=== PATIENT | male | born 1970 ===

== ENCOUNTER 2017-05-25 23:36 | Emergency (ER) | payer MEDICAID ==
[2017-05-25 23:36] VITALS: BMI 28.3
[2017-05-26 00:11] VITALS: RESP 18
[2017-05-26 00:12] VITALS: O2SAT 98
--- NOTE | 2017-05-26 00:50 | ED PDOC ---
HPI: Back Time Seen by Provider: 05/25/17 23:58 Chief Complaint (Nursing): Back Pain Chief Complaint (Provider): Back Pain History Per: Patient History/Exam Limitations: no limitations Onset/Duration Of Symptoms: Hrs Current Symptoms Are (Timing): Still Present Severity: Mild Exacerbating Factor(s): Movement Additional Complaint(s): 46 y/o male patient presenting to the ED with lower back pain. Patient states he was lifting heavy objects today and states he started having lower back pain that worsened with movement. Patient reports the pain is lower on both sides and denies any distal numbness or weakness and the pain is not radiating. He also reports that the pain worsens when he lifted his legs up while laying down. Past Medical History Reviewed: Historical Data, Nursing Documentation, Vital Signs Vital Signs: Last Vital Signs Temp 97.8 F 05/25/17 23:43 Pulse 62 05/25/17 23:43 Resp 18 05/26/17 00:07 BP 117/68 05/25/17 23:43 Pulse Ox 98 05/26/17 00:12 - Medical History PMH: Gastritis, Hypercholesterolemia Denies: Chronic Kidney Disease - Surgical History Surgical History: Appendectomy - Family History Family History: States: Unknown Family Hx - Home Medications Home Medications: Ambulatory Orders Medication Instructions Recorded Simvastatin 10 mg PO DAILY 01/18/15 Omeprazole 2 tab PO DAILY 05/24/16 Cyclobenzaprine [Cyclobenzaprine 10 mg PO BID #15 tab 05/26/17 HCl] Ibuprofen [Motrin Tab] 600 mg PO Q6 #30 tab 05/26/17 Lidocaine 1 each TP DAILY #10 adh..patch 05/26/17 - Allergies Allergies/Adverse Reactions: Allergies Allergy/AdvReac Type Severity Reaction Status Date / Time No Known Allergies Allergy Verified 01/18/15 12:16 Review of Systems ROS Statement: Except As Marked, All Systems Reviewed And Found Negative Constitutional: Negative for: Weakness Cardiovascular: Negative for: Chest Pain Respiratory: Negative for: Shortness of Breath Musculoskeletal: Positive for: Back Pain ((-)Distal Numbness, (+)Lower back pain ) Physical Exam - Reviewed Nursing Documentation Reviewed: Yes Vital Signs Reviewed: Yes - Physical Exam Appears: Positive for: Non-toxic, No Acute Distress Head Exam: Positive for: ATRAUMATIC, NORMAL INSPECTION, NORMOCEPHALIC Skin: Positive for: Normal Color, Warm, Dry Cardiovascular/Chest: Positive for: Regular Rate, Rhythm. Negative for: Murmur Respiratory: Positive for: Normal Breath Sounds. Negative for: Wheezing, Respiratory Distress Extremity: Positive for: Tenderness ((+)Lumbar paravertebral muscular tenderness.), Other ((+)Straight leg raise both sides. ) Neurologic/Psych: Positive for: Alert, Oriented. Negative for: Motor/Sensory Deficits - ECG O2 Sat by Pulse Oximetry: 98 (RA) Pulse Ox Interpretation: Normal Medical Decision Making Medical Decision Making: Time: 11 Initial impression: Muscular Strain Initial plan: --UDIP --LUMBAR SPINE COMPLETE XRAY FOR LOWER BACK PAIN --CYCLOBENZAPRINE 10MG PO --KETOROLAC 30MG IM 130 udip neg, patient feeling better, return precautions given. will d/c home. Scribe Attestation: Documented by Ana Maria Flores, acting as a scribe for Lei Lockhart MD. Scribe Attestation: All medical record entries made by the Scribe were at my direction and personally dictated by me. I have reviewed the chart and agree that the record accurately reflects my personal performance of the history, physical exam, medical decision making, and the department course for this patient. I have also personally directed, reviewed, and agree with the discharge instructions and disposition. Disposition - Clinical Impression Clinical Impression: Back strain - Disposition Referrals: Ana Maria Hall MD [Staff Provider] - Disposition Time: 01:30 Condition: STABLE Prescriptions: Cyclobenzaprine [Cyclobenzaprine HCl] 10 mg PO BID #15 tab Ibuprofen [Motrin Tab] 600 mg PO Q6 #30 tab Lidocaine 1 each TP DAILY #10 adh..patch Instructions: Acute Low Back Pain (ED), Muscle Spasm (ED) Forms: [employer] (Hungarian)
[2017-05-26 01:39] VITALS: BP 139/74; PULSE 78; TEMP 98.1
--- NOTE | 2017-05-26 12:21 | RAD ---
PROCEDURE: Radiographs of the Lumbar Spine. HISTORY: lower back pain COMPARISON: No prior. FINDINGS: BONES: Normal alignment. No listhesis. No fracture. DISC SPACES: Unremarkable. OTHER FINDINGS: None. IMPRESSION: Unremarkable radiographs of the lumbar spine.
== END 2017-05-26 01:44 | disposition home or self-care (01) ==
LOC: H.ER 23:36
DX: S39.012A Strain of muscle, fascia and tendon of lower back, initial encounter (principal); X50.0XXA Overexertion from strenuous movement or load, initial encounter; E78.00 Pure hypercholesterolemia, unspecified

== ENCOUNTER 2017-06-06 12:16 | Observation (INO) | payer MEDICAID ==
[2017-06-06 12:16] VITALS: BMI 28.3
[2017-06-06 12:45] VITALS: PULSE 87; RESP 16; TEMP 98.7
--- NOTE | 2017-06-06 13:22 | ED PDOC ---
HPI: Back Time Seen by Provider: 06/06/17 12:50 Chief Complaint (Nursing): Back Pain Chief Complaint (Provider): Lower Back Pain History Per: Patient History/Exam Limitations: no limitations Onset/Duration Of Symptoms: Days (x2 weeks) Current Symptoms Are (Timing): Still Present Additional Complaint(s): Mian Vu is a 46 year old male with a history of gastritis that presents to the ED with a chief complaint of lower back pain that he has been experiencing for the past two weeks. Patient states that he was in the ED 2 weeks ago for the same problem and had x-ray done which was read as negtive. He has been taking motrin and flexeril which has not helped the pain. He saw PMD yesterday and was given rx for MRI of L/S Spine. PMD told patient to come to ED for the MRI so patient presents today. He rates current pain as 8/10. He denies radiation of pain and he denies any acute bowel or bladder dysfunction. PMD: Dr. Hall Past Medical History Reviewed: Historical Data, Nursing Documentation, Vital Signs Vital Signs: Last Vital Signs Temp 98.7 F 06/06/17 12:42 Pulse 87 06/06/17 12:42 Resp 16 06/06/17 12:42 BP Pulse Ox 126 H 06/06/17 12:42 - Medical History PMH: Gastritis, Hypercholesterolemia - Surgical History Surgical History: Appendectomy Other surgeries: hemmorhoid surgery, rhinoplasty - Family History Family History: States: No Known Family Hx - Living Arrangements Living Arrangements: With Family - Social History Current smoker - smoking cessation education provided: No Alcohol: Social Drugs: Denies - Home Medications Home Medications: Ambulatory Orders Medication Instructions Recorded Simvastatin 10 mg PO DAILY 01/18/15 Omeprazole 2 tab PO DAILY 05/24/16 Cyclobenzaprine [Cyclobenzaprine 10 mg PO BID #15 tab 05/26/17 HCl] Ibuprofen [Motrin Tab] 600 mg PO Q6 #30 tab 05/26/17 Lidocaine 1 each TP DAILY #10 adh..patch 05/26/17 Methylprednisolone [Medrol Dose 4 mg PO ASDIR #21 mg 06/06/17 Pack (21 tabs)] - Allergies Allergies/Adverse Reactions: Allergies Allergy/AdvReac Type Severity Reaction Status Date / Time No Known Allergies Allergy Verified 01/18/15 12:16 Review of Systems ROS Statement: Except As Marked, All Systems Reviewed And Found Negative Constitutional: Negative for: Fever Gastrointestinal: Negative for: Vomiting Genitourinary Male: Negative for: Dysuria, Frequency, Incontinence, Hematuria Musculoskeletal: Positive for: Back Pain (lower back ) Neurological: Negative for: Headache, Dizziness Physical Exam - Reviewed Nursing Documentation Reviewed: Yes Vital Signs Reviewed: Yes - Physical Exam Appears: Positive for: Well, Non-toxic, Uncomfortable (complains of low back pain) Head Exam: Positive for: ATRAUMATIC, NORMOCEPHALIC Skin: Positive for: Normal Color, Warm Eye Exam: Positive for: Normal appearance Neck: Positive for: Painless ROM. Negative for: Pain On Movement Of Neck Cardiovascular/Chest: Positive for: Regular Rate, Rhythm Respiratory: Positive for: Normal Breath Sounds. Negative for: Wheezing, Respiratory Distress Back: Positive for: Vertebral Tenderness (diffuse to lower lumbar region, negative bilateral straight leg raise), Muscle Spasm (lumbar region). Negative for: L CVA Tenderness, R CVA Tenderness Extremity: Positive for: Normal ROM. Negative for: Pedal Edema, Calf Tenderness , Swelling Neurologic/Psych: Positive for: Alert, Oriented, Gait (steady). Negative for: Motor/Sensory Deficits - Laboratory Results Result Diagrams: 06/06/17 14:40 06/06/17 13:55 - ECG O2 Sat by Pulse Oximetry: 100 Pulse Ox Interpretation: Normal - Other Rad MRI L/S Spine X-Ray: Read By Radiologist X-Ray Interpretation: see below Medical Decision Making Medical Decision Making: Impression: Lower Back Pain Plan: * MRI L/S Spine as per verbal order from PMD Dr. Hall * CBC * CMP * IV 30 mg toradol * PO flexeril and tylenol * Admit to ED observation Scribe Attestation: Documented by Kasia Holland, acting as a scribe for Miriam Fitzpatrick PA-C. Provider Scribe Attestation: All medical record entries made by the Scribe were at my direction and personally dictated by me. I have reviewed the chart and agree that the record accurately reflects my personal performance of the history, physical exam, medical decision making, and the department course for this patient. I have also personally directed, reviewed, and agree with the discharge instructions and disposition. ED OBSERVATION Date of observation admission: 06/06/17 Time of observation admission: 14:12 - Observation admission statement Patient is being placed in observation because:: Intractable back pain - Goals of Observation Goals of observation are:: Monitor patient pending work up for intractable back pain, MRI and labs pending. - Progress Note Progress Note: 06/06/17 14:13 MRI LS spine ordered as per request of PMD, Dr. Hall. MRI aware of case and will take patient at 2:45 pm. 06/06/17 16:01 MRI: FINDINGS: ormal lumbar lordosis. Vertebral body heights are preserved. Marrow signal unremarkable. Conus medullaris unremarkable at the level of L1. Paraspinal soft tissues are unremarkable. T12-L1: No disc herniation, spinal canal stenosis or neural foraminal narrowing. L1-2: Left paracentral disc herniation with thecal sac indentation. L2-3: No disc herniation, spinal canal stenosis or neural foraminal narrowing. L3-4: No disc herniation, spinal canal stenosis or neural foraminal narrowing. L4-5: Right foraminal disc herniation with right foraminal stenosis. L5-S1: No disc herniation, spinal canal stenosis or neural foraminal narrowing. OTHER FINDINGS: None. IMPRESSION: L1-2: Left paracentral disc herniation with thecal sac indentation. L4-5: Right foraminal disc herniation with right foraminal stenosis. 06/06/17 16:29 Above results d/w PMD, Dr Hall. He states to discharge patient with medrol dose pack rx, give him copy of MRI report and instruction to follow up in his office tomorrow. Patient is aware of and agrees with plan. He states he feels better after meds given in ED. Disposition - Clinical Impression Clinical Impression: Lumbar herniated disc, Back pain - Patient ED Disposition Is Patient to be Admitted: No Counseled Patient/Family Regarding: Studies Performed, Diagnosis, Need For Followup, Rx Given - Disposition Disposition: Routine/Home Disposition Time: 16:30 Condition: IMPROVED Results - Lab Results Lab Results: 06/06/17 13:55 Sodium 142 Potassium 4.3 Chloride 104 Carbon Dioxide 27 Anion Gap 15 BUN 18 Creatinine 0.7 L Est GFR ( Amer) > 60 Est GFR (Non-Af Amer) > 60 Random Glucose 95 Calcium 10.0 Total Bilirubin 0.3 AST 27 ALT 48 Alkaline Phosphatase 63 Total Protein 7.8 Albumin 4.6 Globulin 3.1 Albumin/Globulin Ratio 1.5
[2017-06-06 14:39] LABS: BASO # 0.1 K/uL (0.0-0.2); BASO % 0.9 % (0.0-2.0); EOS # 0.2 K/uL (0.0-0.7); EOS % 3.3 % (0.0-4.0); HEMOGLOBIN 14.4 g/dL (12.0-18.0); LYMPH # 2.7 K/uL (1.0-4.3); LYMPH % 46.6 % (20.0-40.0); MEAN CELL VOLUME 84.4 fl (80.0-94.0); MEAN CORPUSCULAR HEMOGLOBIN 28.3 pg (27.0-31.0); MEAN CORPUSCULAR HGB CONC 33.5 g/dL (33.0-37.0); MEAN PLATELET VOLUME 7.7 fl (7.2-11.7); MONO # 0.4 K/uL (0.0-0.8); MONO % 6.2 % (0.0-10.0); NEUT # 2.5 K/uL (1.8-7.0); NRBC % 0.1 % (0.0-0.0); RBC 5.1 Mil/uL (4.40-5.90); RED CELL DISTRIBUTION WIDTH 14.3 % (11.5-14.5); WHITE BLOOD COUNT 5.7 K/uL (4.8-10.8)
[2017-06-06 15:02] LABS: ALB/GLOB RATIO 1.5 (1.0-2.1); ALBUMIN 4.6 g/dL (3.5-5.0); ALT/SGPT 48 U/L (21-72); AST/SGOT 27 U/L (17-59); BLOOD UREA NITROGEN 18 mg/dl (9-20); GFR AFRICAN-AMERICAN > 60; GFR NON-AFRICAN AMERICAN > 60
--- NOTE | 2017-06-06 15:34 | MRI ---
PROCEDURE: MR LUMBAR SPINE WITHOUT CONTRAST HISTORY: severe low back pain COMPARISON: None available. TECHNIQUE: Multiecho multiplanar sequences were performed through the lumbar spine without the use of intravenous contrast. FINDINGS: Normal lumbar lordosis. Vertebral body heights are preserved. Marrow signal unremarkable. Conus medullaris unremarkable at the level of L1. Paraspinal soft tissues are unremarkable. T12-L1: No disc herniation, spinal canal stenosis or neural foraminal narrowing. L1-2: Left paracentral disc herniation with thecal sac indentation. L2-3: No disc herniation, spinal canal stenosis or neural foraminal narrowing. L3-4: No disc herniation, spinal canal stenosis or neural foraminal narrowing. L4-5: Right foraminal disc herniation with right foraminal stenosis. L5-S1: No disc herniation, spinal canal stenosis or neural foraminal narrowing. OTHER FINDINGS: None. IMPRESSION: L1-2: Left paracentral disc herniation with thecal sac indentation. L4-5: Right foraminal disc herniation with right foraminal stenosis.
[2017-06-06 16:27] VITALS: O2SAT 100
== END 2017-06-06 17:26 | disposition home or self-care (01) ==
LOC: H.ER 12:16 → H.EROBSV 14:11
PROVIDERS: ADMIT Emergency Medicine; ATTEND Emergency Medicine
DX: M51.26 Other intervertebral disc displacement, lumbar region (principal); E78.00 Pure hypercholesterolemia, unspecified; K29.70 Gastritis, unspecified, without bleeding